=== PATIENT | male | born 1985 | race Caucasian/White ===

== ENCOUNTER 2025-07-05 08:30 | Emergency (ER) | payer OTHER, SELFPAY ==
--- OUTSIDE RECORDS SUMMARY | 2025-07-05 08:38 | XMS_ITS | Clinical Summary ---
Author Organization [facility] Address [address] [place] [address] Care Team Providers Care Pullman Conductor Name Role Phone Unknown, Provider Primary Care Provider Unavaila ble Source Comments [facility],non-owned Affiliates and Associated Physician Practices is amultiple site organization consisting of ambulatory clinics and hospital sitesin [place], [place] and [place]. This disclosure is being madepursuant to the Care Everywhere program and may not contain all information available regarding this patient. Last updated 18.[facility] Allergies Active Allergy Reactions Criticality Noted Date Comments Peanut-Derived 10/16/2016 Medications * Be aware that medications may not be up to date on this document. Alwaysverify current medications with the patient. No known medications Family History Medical History Relation Name Comments Diabetes Father ADHD Neg Hx Allergies Neg Hx Aneurysm Neg Hx Asthma Neg Hx Autoimmune Disease Neg Hx Bipolar Disorder Neg Hx CVA<55(male) Neg Hx CVA<65(female) Neg Hx Cancer - Breast Neg Hx Cancer - Colon Neg Hx Cancer - Other Neg Hx Cancer - Ovarian Neg Hx Cancer - Pancreatic Neg Hx Cancer - Prostate Neg Hx Childhood Hearing Disorder Neg Hx Clotting Disorder Neg Hx Depression Neg Hx Eczema Neg Hx Genetic Neg Hx Heart defect Neg Hx Hypercholesterolemia Neg Hx Hypertension Neg Hx IA<55(male) Neg Hx IA<65(female) Neg Hx Mental Health Neg Hx Migraine Neg Hx Osteoporosis Neg Hx Seizures Neg Hx Sudd. 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 Gender Identity Not on file Sexual Orientation Not on file Last Filed Vital Signs Vital Sign Reading Time Taken Comments Blood Pressure 126/84 10/16/2016 2:42 PM DIRECTOR STRATEGIC PLANNING Pulse 99 10/16/2016 2:42 PM DIRECTOR STRATEGIC PLANNING Temperature 37 C (98.6 F) 10/16/2016 2:42 PM DIRECTOR STRATEGIC PLANNING Respiratory Rate 20 10/16/2016 2:42 PM DIRECTOR STRATEGIC PLANNING Oxygen Saturation 95% 10/16/2016 2:42 PM DIRECTOR STRATEGIC PLANNING Inhaled Oxygen Concentration - - Weight 90.7 kg (200 lb) 10/16/2016 2:42 PM DIRECTOR STRATEGIC PLANNING Height 175.3 cm (5' 9) 10/16/2016 2:42 PM DIRECTOR STRATEGIC PLANNING Body Mass Index 29.53 10/16/2016 2:42 PM DIRECTOR STRATEGIC PLANNING Plan of Treatment Health Maintenance Due Date Last Done Comments HIV SCREENING 2001 HEPATITIS C SCREENING 05/20/2004 DTAP/TDAP/TD VACCINES (1 - Tdap) 2005 HEPATITIS B VACCINE (1 of 3 - 19+ 3-dose series) 2005 HPV VACCINE (1 - 3-dose SCDM series) 2013 COVID-19 VACCINE (1 - 2023-2 5 season) 2024 DEPRESSION SCREENING 11/30/2024 INFLUENZA VACCINE (#1) 2025 ZOSTER VACCINE (1 of 2) 2036 HIB VACCINE Aged Out No longer eligi ble based on patient's age to complete this topic MENINGOCOCCAL (Group B) VACC INE SHARED DECISION-MAKING Aged Out No longer eligibl e based on patient's age to complete this topic MENINGOCOCCAL GROUPS A/C/Y/W VACCINE Aged Out No longer eligible b ased on patient's age to complete this topic PNEUMOCOCCAL VACCINE Aged Out No long er eligible based on patient's age to complete this topic Care Teams Pullman Conductor Relationship Specialty Start Date End Date Unknown, Provider PCP - General 10/16/16
--- OUTSIDE RECORDS SUMMARY | 2025-07-05 08:38 | XMS_ITS | Clinical Summary ---
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 Gender Identity Not on file Sexual Orientation Not on file Plan of Treatment Health Maintenance Due Date Last Done Comments Hepatitis C Virus (HCV) Screening 1986 Hepatitis B Immunization (1 of 3 - 19+ 3-dose series) 2005 Human Papillomavirus (HPV) Immunization (1 - 3-dose SCDM series) 2013 SARS-COV-2 Immunization ( season) 2024 Influenza Immunization (#1) 2025 Respiratory Syncytial Virus (RSV) Immunization (Adult) (1 - 1-dose 75+ series) 2061 DTaP/Tdap/Td Immunization Discontinued 12/07/2019 TdaP Immunization Completed 12/07/2019 Meningococcal Immunization (ACWY) Aged Out No longer eligible based on patient's age to complete this topic Pneumococcal Immunization Combined Aged Out No longer eligible based on patient's age to complete this topic Rotavirus Immunization Aged Out No lo nger eligible based on patient's age to complete this topic
[2025-07-05 08:43] VITALS: BP 128/88; PULSE 76; RESP 16; TEMP 36.7; O2SAT 100
[2025-07-05 09:01] VITALS: BP 131/89; PULSE 100; RESP 16; TEMP 36.6; O2SAT 96
[2025-07-05] MEDS: SODIUM CHLORIDE 0.9% IV 1,000 ML 999 ML IV CONT (09:09)
[2025-07-05] MEDS: KETOROLAC 30 MG/ML VIAL (*BKC) IV PUSH (09:09)
[2025-07-05] MEDS: diazePAM INJ (*CRX) 10 MG/2 ML SYRINGE 5 MG IV PUSH (09:09)
[2025-07-05 09:12] VITALS: BP 131/89; PULSE 80; RESP 16; TEMP 36.6; O2SAT 98
[2025-07-05 09:18] LABS: Add Urine Microscopic? NO; Appearance Urine Clear (Clear); Glucose Urine UA Negative (Negative); Leukocyte Esterase Ur Negative LEU/UL (Negative); Nitrate Urine Negative (Negative); Specific Grav Ur 1.030 (1.001-1.035)
[2025-07-05 09:31] VITALS: BP 121/85; PULSE 98; RESP 16; O2SAT 97
--- NOTE | 2025-07-05 09:35 | ED_ITS ---
HPI - Back Pain/Injury General Chief Complaint: Back Pain/Injury Stated Complaint: massive back pain Time Seen by Provider: 07/05/25 08:39 History of Present Illness HPI Narrative: Patient is a 40-year-old male who presents ER with back pain. Low thoracic region, worsening over last 2 days. No known injury. 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 No numbness or tingling in arms or legs. No saddle anesthesia. Pain is worse with physical movements. Better when he is lying still. He would take Tylenol and ibuprofen yesterday without improvement of pain but he noticed any pain would not get worse when he would take it. Related Data Allergies Allergy/AdvReac Type Severity Reaction Status Date / Time peanut Allergy Unknown Verified 09/28/19 09:06 raw carrots Allergy Severe feels like Uncoded 10/21/14 18:31 throat is closing up Review of Systems Review of Systems: All systems reviewed & are unremarkable except as noted in HPI and below Constitutional: Constitutional: Reports no additional constitutional complaints ENT: Reports system reviewed and no additional complaints, except as documented Cardiovascular: Cardiovascular: Reports no additional cardiovascular complaints Gastrointestinal: Gastrointestinal: Reports no additional gastrointestinal complaints Musculoskeletal: Musculoskeletal: Reports no additional musculoskeletal complaints PMFSH Past Medical History Medical History (Updated 07/05/25 @ 10:53 by Ulisses Garcia MD) Healthy adult male Surgical History Surgical History (Updated 07/05/25 @ 09:37 by Ulisses Garcia MD) No pertinent past surgical history Family History Family History (Updated 06/27/16 @ 23:19 by DOCTOR UNKNOWN) Father Hypertension Family history of diabetes mellitus in first degree relative Family history of congestive heart failure Social History Social History Alcohol intake: current Exam Narrative: GENERAL: Uncomfortable-appearing, well-nourished, and in no acute distress. HEAD: Normocephalic, atraumatic. ENT: Mucous membranes moist. CHEST: Clear to auscultation. No respiratory distress. HEART: Regular rate and rhythm. Normal peripheral pulses. Back: No reproducible midline tenderness the T/L spine or paraspinal musculature but patient does have significant discomfort with trying to sit up and with rolling over. EXTREMITIES: Normal range of motion. No edema. Negative straight leg raise. SKIN: Warm, dry, no rash. NEURO: Alert and oriented x3. PSYCH: Normal mood and affect. Course Course Emergency Course: Modest improvement pain with Toradol/Valium/IV fluid. Vital Signs Vital signs: Vital Signs Temperature 98.0 F 07/05/25 08:43 Pulse Rate 76 07/05/25 08:43 Respiratory Rate 16 07/05/25 08:43 Blood Pressure 128/88 07/05/25 08:43 Pulse Oximetry 100 07/05/25 08:43 Oxygen Delivery Room Air 07/05/25 08:43 Temperature 97.9 F 07/05/25 10:01 Pulse Rate 99 07/05/25 10:01 Respiratory Rate 16 07/05/25 10:01 Blood Pressure 109/79 07/05/25 10:01 Pulse Oximetry 97 07/05/25 10:01 Oxygen Delivery Room Air 07/05/25 08:43 MDM - Back Pain/Injury Lab Data Labs: Lab Results 07/05/25 Range/Units 09:13 Urine Color Yellow (Yellow) Urine Appearance Clear (Clear) Urine pH 5.5 (5.0-9.0) Ur Specific [place] 1.030 (1.001-1.035) Urine Protein Negative (Negative) mg/dL Urine Glucose (UA) Negative (Negative) mg/dL Urine Ketones Negative (Negative) mg/dL Ur Blood (Man) Negative (Negative) Urine Nitrate Negative (Negative) Urine Bilirubin Negative (Negative) Urine Urobilinogen 0.2 (<2.0) mg/dL Leukocyte Esterase Rfl Negative (Negative) CHASE/UL Discharge Plan Discharge Clinical Impression: Back strain Patient Disposition: Home Condition: Stable Instructions: Thoracic Back Strain (ED) Additional Instructions: Please return to the emergency department if you develop severe pain that is not controlled by pain medications or if you are unable to walk because of pain or weakness. Return to the emergency department immediately if you develop fevers, loss of bowel or bladder control (dribbling of urine or having accidents you wouldn't normally have), inability to urinate, numbness of your genital or anal area, or weakness/numbness of your legs or arms as these could all be signs of a serious medical emergency. Patient Language: Mongolian Prescriptions: New cyclobenzaprine 10 mg tablet 10 mg PO TID PRN (Reason: muscle spasm) Qty: 20 0RF naproxen 375 mg tablet 375 mg PO BID Qty: 14 0RF Follow-up/Referrals: Rob,MD Vini [Primary Care Provider] - 1 Week
--- OUTSIDE RECORDS SUMMARY | 2025-07-05 09:39 | XMS_ITS | Clinical Summary ---
Author Organization [facility] Address [address] [place] [address] Care Team Providers Care Digital Controls Technical Officer Name Role Phone Unknown, Provider Primary Care Provider Unavaila ble Source Comments [facility],non-owned Affiliates and Associated Physician Practices is amultiple site organization consisting of ambulatory clinics and hospital sitesin [place], [place], [place] and [place]. This disclosure is being madepursuant to the Care Everywhere program and may not contain all information available regarding this patient. Last updated 18.[facility] Allergies Active Allergy Reactions Criticality Noted [...] Hx Hypercholesterolemia Neg Hx Hypertension Neg Hx CT<55(male) Neg Hx CT<65(female) Neg Hx Mental Health Neg Hx Migraine Neg Hx Osteoporosis Neg Hx Seizures Neg Hx Sudd. 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 Gender Identity Not on file Sexual Orientation Not on file Last Filed Vital Signs Vital Sign Reading Time Taken Comments Blood Pressure 126/84 10/16/2016 2:42 PM COIN MACHINE SUPERVISOR Pulse 99 10/16/2016 2:42 PM COIN MACHINE SUPERVISOR Temperature 37 C (98.6 F) 10/16/2016 2:42 PM COIN MACHINE SUPERVISOR Respiratory Rate 20 10/16/2016 2:42 PM COIN MACHINE SUPERVISOR Oxygen Saturation 95% 10/16/2016 2:42 PM COIN MACHINE SUPERVISOR Inhaled Oxygen Concentration - - Weight 90.7 kg (200 lb) 10/16/2016 2:42 PM COIN MACHINE SUPERVISOR Height 175.3 cm (5' 9) 10/16/2016 2:42 PM COIN MACHINE SUPERVISOR Body Mass Index 29.53 10/16/2016 2:42 PM COIN MACHINE SUPERVISOR Plan of Treatment Health Maintenance Due Date [...] age to complete this topic Care Teams Digital Controls Technical Officer Relationship Specialty Start Date End Date Unknown, Provider PCP - General 10/16/16
--- OUTSIDE RECORDS SUMMARY | 2025-07-05 09:39 | XMS_ITS | Clinical Summary ---
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
[2025-07-05 10:01] VITALS: BP 109/79; PULSE 99; RESP 16; TEMP 36.6; O2SAT 97
== END 2025-07-05 11:02 | disposition home or self-care (01) ==
PROVIDERS: Emergency Provider Emergency Medicine; PCP Family Medicine
DX: S29.012A Strain of muscle and tendon of back wall of thorax, initial encounter (principal); X58.XXXA Exposure to other specified factors, initial encounter
CPT/HCPCS: 81003; 96361; 96374; 96375; 99284; J1885; J3360; J7030